=== PATIENT | male | born 1995 | race Caucasian/White ===

== ENCOUNTER 2016-12-23 19:54 | Emergency (ER) | payer SELFPAY ==
[~2016-12-23] VITALS: Ht 203.2 cm; Wt 103.9 kg
[2016-12-23 21:55] VITALS: BP 124/76
== END 2016-12-23 22:54 | disposition home or self-care (01) ==
LOC: ER 20:00
DX: S93.401A Sprain of unspecified ligament of right ankle, initial encounter (principal); Z88.1 Allergy status to other antibiotic agents; Z88.2 Allergy status to sulfonamides; X50.0XXA Overexertion from strenuous movement or load, initial encounter; Y93.89 Activity, other specified; Y99.8 Other external cause status; Y92.89 Other specified places as the place of occurrence of the external cause
CPT/HCPCS: 73610